=== PATIENT | male | born 1990 | race Caucasian/White ===

== ENCOUNTER 2017-01-29 20:54 | Emergency (ER) | payer MEDICAID ==
--- NOTE | ~2017-01-29 | ER ---
PATIENT'S NAME: NEENA BERMUDEZ [facility] AGE: 26 Y [address] ROOM: [place] [id number] LOCATION: ED ADMIT DATE: 01/29/2017 ER/Outpatient Report DISCHARGE DATE: 01/29/2017 FAMILY PHYSICIAN: Zane Dempsey MD ATTENDING PHYSICIAN: Tod Barr Admission date and time documented on the medical record. I saw the patient at 2110 hours. CHIEF COMPLAINT: Fever. HISTORY OF PRESENT ILLNESS: This patient is a 26-year-old male who was noted to have a fever up to 103.5 about 3 hours prior to admission to the emergency room. The patient was given ibuprofen at that time. Brought to the emergency room for evaluation. By recent history, he has had a cellulitis of his right elbow. He was placed on Bactrim. He was seen by Dr. Vieyra. Yesterday, Dr. Vieyra incised and drained the elbow and cultured it. He revisited Dr. Vieyra today and apparently the wound looked good. Culture was still pending. Spiked a fever prior to admission to the emergency room. No headache, eyes, ears, nose, throat, neck, or spine pain. No chest pain, shortness of breath, or cough. No abdominal pain, nausea, vomiting, diarrhea, urinary frequency, urgency, or dysuria. Other than the right elbow, no other joint, muscle swelling, redness, or pain. No skin eruptions or rash. No lightheadedness, dizziness, syncope, or near syncope. 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 No neuro issues, psych issues, or endocrine problems. HOME MEDICATIONS: See attached medication list. ALLERGIES: NONE. SOCIAL HISTORY: Nonsmoker and nondrinker. SIGNIFICANT PAST MEDICAL HISTORY: Asthma, scoliosis, chondrodysplasia punctata, and pneumonia. OPERATIONS: Bilateral hip surgery and back surgery with pretty placements. REVIEW OF SYSTEMS: All systems reviewed by me are negative with exception of those discussed in PATIENT'S NAME: NEENA BERMUDEZ [facility] AGE: 26 Y [address] ROOM: [place] [id number] LOCATION: [facility] ADMIT DATE: 01/29/2017 ER/Outpatient Report DISCHARGE DATE: 01/29/2017 FAMILY PHYSICIAN: Zane Dempsey MD ATTENDING PHYSICIAN: Tod Barr the history of present illness. PHYSICAL EXAMINATION: VITAL SIGNS: Temperature 100.6, tympanic; pulse 106; respirations 20; blood pressure 127/62; O2 saturation on room air is 95%. HEENT: Head: Normocephalic. Eyes: Clear. Ears: Clear TMs bilaterally. NOSE AND THROAT: Clear. Mucous membranes are moist. NECK: Negative. SPINE: Negative. LUNGS: Clear. Good air flow. No rales, rhonchi, or wheezes. HEART: Regular. Pulses are palpable. ABDOMEN: Soft, nondistended, nontender. Good bowel tones. No organomegaly or abnormal masses palpable. EXTREMITIES: Covered wound, right elbow. NEURO: Intact. IMAGING DATA: Chest x-rays showed no acute infiltrate or changes. We will review x-ray with the radiologist. LABORATORY DATA: White count is 9400, 82 segs, 9 lymphs, 7 monos, 1 eosinophil. Hemoglobin was 15.7, hematocrit 44.8 platelet count 153,000. CMS was normal. CRP was 2.74, lactate was 0.7, procalcitonin was 0.16. I did review the culture done on right elbow and it had no growth in 24 hours. IMPRESSION: Febrile illness, etiology uncertain. The patient does have a cellulitis of the right elbow and had an incision and drainage performed yesterday. The patient is presently being treated with Bactrim. PLAN: The patient was discharged from the emergency room home, observation, activity as tolerated. Continue present home medications and care. Fluids and diet as tolerated. Tylenol or ibuprofen dosage per age and weight every 4-6 hours as needed for fever. May alternate every 2 hours if needed. Discussion ensued with mother and father in regard to my findings and recommendations, they understand. TOD BARR MD SDS/modl PATIENT'S NAME: NEENA BERMUDEZ [facility] AGE: 26 Y [address] ROOM: [place] [id number] LOCATION: ED ADMIT DATE: 01/29/2017 ER/Outpatient Report DISCHARGE DATE: 01/29/2017 FAMILY PHYSICIAN: Zane Dempsey MD ATTENDING PHYSICIAN: Tod Barr /[id number] d: 01/30/17 0411 t: 01/30/17 1818, OUTPATIENT REPORT
[~2017-01-29 20:54] MED LIST: ADVAIR 100-501 EACH INH; ADVAIR HFA 230/1 KIT INH; ALBUTEROL2.5 MG/0.5 INH; DELTASONE20 MG PO; FLAGYL500 MG PO; FLOVENT 220 M220 MCG INH; IPRAT-ALBUT 0.5-3 ML INH; SINGULAIR10 MG PO; VANCOCIN ORAL250 MG PO; ZYRTEC10 MG PO
[2017-01-29 21:45] LABS: BASOPHIL % 0.3 %; EOSINOPHIL # 0.1 K/uL (0.0-0.5); EOSINOPHIL % 1.1 %; HEMATOCRIT 44.8 % (37.0-53.0); HEMOGLOBIN 15.7 g/dL (12.0-17.0); IMMATURE GRANULOCYTE % 0.1 %; LYMPHOCYTE # 0.9 K/uL (0.8-4.0); LYMPHOCYTE % 9.4 %; MCH 33.9 pg (27.0-34.0); MCV 96.8 fl (83.0-98.0); MONOCYTE # 0.7 K/uL (0.0-1.0); MPV 9.7 fl (9.4-12.4); NEUTROPHIL # (ANC) 7.7 K/uL (1.4-9.0); NEUTROPHIL % 82.1 %; NRBC % 0 /100WBC (0-0.00); PLATELET COUNT 153 K/uL (150-450); RBC 4.63 M/uL (4.00-6.00); WBC 9.4 K/uL (4.0-11.0)
[2017-01-29 22:06] LABS: ALBUMIN 3.8 gm/dL (3.5-5.0); ALK PHOS 129 IU/L (33-138); ALT 25 IU/L (12-78); ANION GAP 9.9 (10.0-19.0); AST 21 IU/L (10-40); BLOOD UREA NITROGEN 17 mg/dL (6-24); CALCIUM 8.5 mg/dL (8.5-10.5); CHLORIDE 107 mMol/L (96-110); CO2 26 mMol/L (22-32); CREATININE 0.8 mg/dL (0.6-1.3); ESTIMATED GFR (MDRD EQUATION) > 60; POTASSIUM 3.9 mMol/L (3.7-5.1); SODIUM 139 mMol/L (135-145); TOTAL BILIRUBIN 0.8 mg/dL (0.0-1.5)
== END 2017-01-29 22:47 | disposition disaster alternative care site (69) ==
LOC: GMED 20:54
PROVIDERS: Emergency Medicine
DX: R50.9 Fever, unspecified (principal); L03.113 Cellulitis of right upper limb; J45.909 Unspecified asthma, uncomplicated; M41.9 Scoliosis, unspecified; Q77.3 Chondrodysplasia punctata; Z79.899 Other long term (current) drug therapy; Z98.890 Other specified postprocedural states